=== PATIENT | female | born 1980 | race Caucasian/White ===

== ENCOUNTER 2025-06-03 11:18 | Inpatient (IN) | payer BC ==
[~2025-06-03] VITALS: Ht 167.6 cm; Wt 45.1 kg
[2025-06-03] MEDS: IV NS 0.9% 1,000 ML BAG IV ONE (11:55)
[2025-06-03 12:05] LABS: PLATELET COUNT (AUTO) 345 K/uL (150-450); RED BLOOD CELL COUNT(AUTO) 3.98 MIL/uL (4.0-5.2); RED CELL DISTRIBUTION WIDTH 13.4 % (11.5-15.0); WHITE BLOOD COUNT (AUTO) 6.0 K/uL (4.3-11.0)
[2025-06-03 12:16] LABS: CALCIUM, SERUM 9.7 mg/dL (8.5-10.1); CREATININE 0.8 mg/dL (0.6-1.3); SODIUM SERUM 140 mmol/L (136-145); UREA NITROGEN, BLOOD 24 mg/dL (7-18)
[2025-06-03 12:20] LABS: ALCOHOL, BLOOD < 3 mg/dL (0-10); ASPARTATE AMINOTRANSFERASE 55 U/L (15-37); TOTAL PROTEIN, SERUM 8.4 g/dL (6.4-8.2)
[2025-06-03 13:45] LABS: APPEARANCE,URINE SLIGHTLY CLOUDY (CLEAR); BLOOD, URINE NEGATIVE Ery/uL (NEGATIVE); LEUKOCYTE ESTERASE ,URINE NEGATIVE (NEGATIVE); NITRITE, URINE POSITIVE (NEGATIVE); UGLUCOSE TRACE mg/dL (NEGATIVE)
[2025-06-03 13:49] LABS: ADD URINE CULTURE YES; SQUAMOUS EPITHELIAL CELL,UR Few /HPF (None Seen)
[2025-06-03 13:54] LABS: AMPHETAMINE, URINE NEGATIVE (NEGATIVE); BARBITURATE, URINE NEGATIVE (NEGATIVE); BENZODIAZEPINE, URINE NEGATIVE (NEGATIVE); CANNABINOID, URINE NEGATIVE (NEGATIVE); COCCAINE, URINE NEGATIVE (NEGATIVE); OPIATE, URINE NEGATIVE (NEGATIVE)
[2025-06-03 18:30] VITALS: BP 117/90; TEMP 98.1; O2SAT 100
[2025-06-03] MEDS ORDERED: ONDANSETRON HCL/PF 4 MG/2 ML VIAL IVP PRN (19:30)
[2025-06-03] MEDS ORDERED: Z GUARD REMEDY 4 OZ OINT TP PRN (19:30)
[2025-06-03] MEDS ORDERED: ACETAMINOPHEN 325 MG TABLET PO PRN (19:30)
[2025-06-03 19:51] LABS: PHOSPHORUS 3.8 mg/dL (2.5-4.9)
[2025-06-03 20:00] VITALS: BP 132/95; TEMP 97.7; O2SAT 100
[2025-06-03] MEDS ORDERED: Thiamine 300 MG in IV D5W 50 ML IV ONE (21:00)
[2025-06-03] MEDS: IV LR 500 ML IV SCH (21:03)
[2025-06-03] MEDS: IV LR 500 ML IV ONE (21:03)
[2025-06-03] MEDS: ENOXAPARIN SODIUM 40 MG/0.4 ML DISP.SYRIN SQ SCH (21:07)
[2025-06-03] MEDS ORDERED: IOHEXOL-350 100 ML VIAL IV ONE (22:30)
[2025-06-03] MEDS ORDERED: IV NS 0.9% 250 ML IV ONE (22:31)
[2025-06-03] MEDS: THIAMINE IV ONE (22:58)
[2025-06-03] MEDS: D5W IV ONE (22:58)
[2025-06-04 07:00] VITALS: BP 129/96; TEMP 97.3; O2SAT 100
[2025-06-04] MEDS: PANTOPRAZOLE 40 MG TABLET.DR PO SCH (07:43)
[2025-06-04 07:47] LABS: PLATELET COUNT (AUTO) 305 K/uL (150-450); RED BLOOD CELL COUNT(AUTO) 3.57 MIL/uL (4.0-5.2); RED CELL DISTRIBUTION WIDTH 13.5 % (11.5-15.0); WHITE BLOOD COUNT (AUTO) 4.7 K/uL (4.3-11.0)
[2025-06-04 08:02] LABS: CALCIUM, SERUM 9.1 mg/dL (8.5-10.1); CREATININE 0.6 mg/dL (0.6-1.3); PHOSPHORUS 2.9 mg/dL (2.5-4.9); SODIUM SERUM 137.0 mmol/L (136-145); UREA NITROGEN, BLOOD 13.0 mg/dL (7-18)
[2025-06-04 08:06] LABS: LDL 161.0 mg/dL (0-99)
[2025-06-04] MEDS: THIAMINE HCL 100 MG TABLET PO SCH (08:22)
[2025-06-04] MEDS: IV LR 1000 ML 1,000 ML IV PRN (12:42)
[2025-06-04 16:00] VITALS: BP 123/84; TEMP 98.2
[2025-06-04 20:00] VITALS: BP_SYST 123; BP_DIAS 59; BP_DIAS 84; TEMP 97.9; O2SAT 97
[2025-06-05 07:30] VITALS: BP 107/79; TEMP 98.2; O2SAT 100
[2025-06-05 07:31] LABS: PLATELET COUNT (AUTO) 278 K/uL (150-450); RED BLOOD CELL COUNT(AUTO) 3.15 MIL/uL (4.0-5.2); RED CELL DISTRIBUTION WIDTH 13.6 % (11.5-15.0); WHITE BLOOD COUNT (AUTO) 4.5 K/uL (4.3-11.0)
[2025-06-05 07:47] LABS: CALCIUM, SERUM 9.6 mg/dL (8.5-10.1); CREATININE 0.4 mg/dL (0.6-1.3); PHOSPHORUS 3.6 mg/dL (2.5-4.9); SODIUM SERUM 145.0 mmol/L (136-145); UREA NITROGEN, BLOOD 4.0 mg/dL (7-18)
[2025-06-05] MEDS: POTASSIUM CHLORIDE 20 MEQ TAB.PRT.SR PO SCH (09:24)
[2025-06-05] MEDS: MAGNESIUM OXIDE 400 MG TABLET PO ONE (09:24)
[2025-06-05] MEDS: FOLIC ACID 1 MG TABLET PO SCH (13:54)
[2025-06-05 16:00] VITALS: BP 110/84; TEMP 97.9; O2SAT 100
[2025-06-05 21:01] VITALS: BP 96/66; TEMP 97.7; O2SAT 100
[2025-06-06 07:06] LABS: ASPARTATE AMINOTRANSFERASE 74.0 U/L (15-37); CALCIUM, SERUM 9.1 mg/dL (8.5-10.1); CREATININE 0.5 mg/dL (0.6-1.3); PHOSPHORUS 3.2 mg/dL (2.5-4.9); SODIUM SERUM 143.0 mmol/L (136-145); TOTAL PROTEIN, SERUM 6.4 g/dL (6.4-8.2); UREA NITROGEN, BLOOD 4.0 mg/dL (7-18)
[2025-06-06 08:06] VITALS: BP 99/68; TEMP 97.5; O2SAT 100
[2025-06-06] MEDS: ESCITALOPRAM OXALATE (10 MG) 10 MG TABLET PO SCH (08:41)
[2025-06-06 09:52] LABS: PLATELET COUNT (AUTO) 272 K/uL (150-450); RED BLOOD CELL COUNT(AUTO) 3.19 MIL/uL (4.0-5.2); RED CELL DISTRIBUTION WIDTH 13.6 % (11.5-15.0); WHITE BLOOD COUNT (AUTO) 5.0 K/uL (4.3-11.0)
[2025-06-06] MEDS: MAGNESIUM OXIDE 400 MG TABLET PO ONE (10:20)
[2025-06-06] MEDS ORDERED: DIATR MEGLU/DIATRIZOATE SODIUM 120 ML BOTTLE (GASTROGRAPHIN) ONE (11:06)
[2025-06-06 16:16] VITALS: BP 108/74; TEMP 98.1; O2SAT 100
[2025-06-06] MEDS: ENSURE ENLIVE CHOC 237 ML CAN PO SCH (17:12)
[2025-06-06 20:00] VITALS: BP 119/83; TEMP 98.1; O2SAT 100
[2025-06-07 07:30] VITALS: BP 109/80; TEMP 97.9; O2SAT 100
[2025-06-07 08:23] LABS: PLATELET COUNT (AUTO) 273 K/uL (150-450); RED BLOOD CELL COUNT(AUTO) 3.03 MIL/uL (4.0-5.2); RED CELL DISTRIBUTION WIDTH 13.7 % (11.5-15.0); WHITE BLOOD COUNT (AUTO) 5.7 K/uL (4.3-11.0)
[2025-06-07 08:40] LABS: CALCIUM, SERUM 9.2 mg/dL (8.5-10.1); CREATININE 0.5 mg/dL (0.6-1.3); PHOSPHORUS 3.6 mg/dL (2.5-4.9); SODIUM SERUM 143.0 mmol/L (136-145); UREA NITROGEN, BLOOD 3.0 mg/dL (7-18)
[2025-06-07 10:07] LABS: COMPLEMENT C3, SERUM 109 mg/dL (82-167); COMPLEMENT C4, SERUM 18 mg/dL (12-38)
[2025-06-07 11:09] LABS: *ANA ANTI-CENTROMERE B AB <0.2 AI (0.0-0.9); *ANA ANTI-DNA(DS) AB, QN 2 IU/mL (0-9); *ANA ANTI-JO-1 <0.2 AI (0.0-0.9); *ANA ANTICHROMATIN ANTIBODY <0.2 AI (0.0-0.9); *ANA RNP ANTIBODIES <0.2 AI (0.0-0.9); *ANA SJOGREN'S ANTI-SS-A <0.2 AI (0.0-0.9); *ANA SJOGREN'S ANTI-SS-B <0.2 AI (0.0-0.9); *ANAANTI-SCLERODERMA-70 AB <0.2 AI (0.0-0.9); *ANASMITH AB <0.2 AI (0.0-0.9)
[2025-06-07] MEDS ORDERED: IV NS 0.9% 250 ML IV ONE (14:21)
[2025-06-07] MEDS ORDERED: IOHEXOL-300 100 ML VIAL IV ONE (14:21)
[2025-06-07 16:00] VITALS: BP 105/74; TEMP 97.9; O2SAT 99
[2025-06-07 20:38] VITALS: BP 115/83; TEMP 97.7; O2SAT 100
[2025-06-07] MEDS: QUETIAPINE FUMARATE 25 MG TABLET PO PRN (20:45)
[2025-06-08 08:00] VITALS: BP 112/79; TEMP 98.1; O2SAT 98
[2025-06-08] MEDS ORDERED: Thiamine 300 MG in IV D5W 50 ML IV SCH (14:00)
[2025-06-08] MEDS: IV LR 1000 ML 1,000 ML IV SCH (14:00)
[2025-06-08] MEDS: MULTIVITAMINS,THERAGRAN 1 UDTAB TABLET PO SCH (14:00)
[2025-06-08] MEDS ORDERED: Thiamine 300 MG in IV D5W 100 ML IV SCH (14:00)
[2025-06-08] MEDS: Thiamine 300 MG in IV D5W 100 ML IV SCH (14:43)
[2025-06-08 16:00] VITALS: BP 109/76; TEMP 98.1; O2SAT 100
[2025-06-08 16:36] LABS: ASPARTATE AMINOTRANSFERASE 109.0 U/L (15-37); TOTAL PROTEIN, SERUM 5.7 g/dL (6.4-8.2)
[2025-06-08 20:50] VITALS: BP 96/72; TEMP 98.1; O2SAT 98
[2025-06-09 08:00] VITALS: BP 114/84; TEMP 98.1; O2SAT 98
[2025-06-09] MEDS ORDERED: ESCI10TA PO (12:05)
[2025-06-09] MEDS ORDERED: THIA100T74 PO (12:05)
[2025-06-09 16:00] VITALS: BP 108/87; TEMP 97.7; O2SAT 99
[2025-06-09 16:13] LABS: *ANCA ATYPICAL p-ANCA <1:20 titer (Neg:<1:20); *ANCA CYTOPLASMIC (C-ANCA) <1:20 titer (Neg:<1:20); *ANCA PERINUCLEAR (P-ANCA) <1:20 titer (Neg:<1:20)
== END 2025-06-09 16:35 | disposition home or self-care (01) | DRG 641 ==
LOC: ER 11:25 → MED 18:21
PROVIDERS: ADMIT Nurse Practitioner Acute Care; ATTEND Nurse Practitioner Acute Care
DX: E51.9 Thiamine deficiency, unspecified (principal); I77.4 Celiac artery compression syndrome; Z68.1 Body mass index [BMI] 19.9 or less, adult; E87.29 Other acidosis; E44.0 Moderate protein-calorie malnutrition; E86.0 Dehydration; T73.0XXA Starvation, initial encounter; F32.A Depression, unspecified; R74.01 Elevation of levels of liver transaminase levels; E83.39 Other disorders of phosphorus metabolism; E83.42 Hypomagnesemia; E87.6 Hypokalemia; K44.9 Diaphragmatic hernia without obstruction or gangrene; K76.0 Fatty (change of) liver, not elsewhere classified; Z73.6 Limitation of activities due to disability; H55.00 Unspecified nystagmus; R63.0 Anorexia; R16.2 Hepatomegaly with splenomegaly, not elsewhere classified; F29 Unspecified psychosis not due to a substance or known physiological condition; F39 Unspecified mood [affective] disorder; H53.2 Diplopia; F10.10 Alcohol abuse, uncomplicated; Z20.822 Contact with and (suspected) exposure to COVID-19
CPT/HCPCS: 36415; 70544-TC; 70551-TC; 71260-TC; 74175-TC; 74246-TC; 80048-TC; 80061-TC; 80076-TC; 81001; 82140-TC; 82607-TC; 83520; 83735-TC; 84100-TC; 84425; 84443-TC; 84702-TC; 85025-TC; 85652-TC; 86225; 86235; 86256; 86803; 87081-TC; 87086-TC; 87340; A4223; G0378; G0480; J1650; J3411; J7030; J7050; J7060; J7120; Q9963; Q9967